=== PATIENT | female | born 1975 | race Caucasian/White ===

== ENCOUNTER 2025-01-06 23:08 | Emergency (ER) | payer BC, SELFPAY ==
[2025-01-06 23:13] VITALS: BP 140/74
[2025-01-07 01:31] VITALS: BMI 17.8
[2025-01-07 01:33] VITALS: BP 117/81
--- NOTE | 2025-01-07 03:32 | ED.GENMED ---
History of Present Illness
General
Chief Complaint: Visual Problem
Source: patient
Exam Limitations: none
Time Seen by Provider: 01/07/25 03:31
Nursing documentation reviewed up to this point in time: agreed with
History of Present Illness
History of Present Illness:
49-year-old female presents to the ER today with complaints of a floater in her right eye which began last night around 10 PM when patient was getting ready to go to sleep. Patient reports that out of her right eye, she small saw 1 black squiggly
line which turned into a [place]. She reports that occasionally will move across her vision. Is not impairing her vision. She also has a mild foreign body sensation in her right eye but denies any pain. She has not recall getting anything into
her eye or scratching her eye. She currently does not wear contacts and wears glasses. She has follow-up with the optic mortgage loan counselor but does not regularly see an boat person. She denies any history of high blood pressure or diabetes. She
denies any headache, blurry vision, neck pain, paresthesias in one-sided body or the face. She does not recall if this happened to her before. She denies flashes of light. She denies a curtain coming down over her vision. Patient denies
development of new floatrees or progression of symptoms as patient has been waiting in the emergency department.
Review of Systems
Review of Systems
All Other Systems: ROS reviewed and negative except as documented in HPI and ROS
Phy Exam
Physical Exam
Physical Exam:
General: Patient is well appearing and in no acute distress; non-toxic
Skin: Warm and dry, no rashes or lesions
Head: Normocephalic, atraumatic
Eyes: Sclera non-icteric. EOMs intact.
Visual acuity 20/25 bilaterally, small linear area of fluorescein uptake over the right cornea
Bedside ocular ultrasound does not reveal any evidence of retinal detachment or posterior vitreous detachment
Peripheral visual sky intact.
Cardiac: Regular rate
Pulm: Normal respiratory effort
Neuro: CN II-XII intact, no focal neurologic deficits. Normal finger to nose.
Psychiatric: Appropriate mood and affect.
Course
Orders/Labs/Results
Orders:
Orders
01/07/25 03:31
Visual Acuity- Treatment ONCE
01/07/25 06:00
Fluorescein Sodium [Ful-Yolie] 1 mg .ROUTE .STK-MED ONE
Purified Water Eye Wash [Dacriose Eye Wash Solution] 120 ml .ROUTE .STK-MED ONE
Tetracaine HCl [Tetracaine 0.5% Ophthalmic Solution] 1 drop .ROUTE .STK-MED ONE
Vital Signs
Initial and Last Documented VS:
Initial Vital Signs
Temp Pulse Resp BP Pulse Ox
97.6 F 76 18 140/74 100
01/06/25 23:13 01/06/25 23:13 01/06/25 23:13 01/06/25 23:13 01/06/25 23:13
Last Documented Vital Signs
Temp Pulse Resp BP Pulse Ox
97.6 F 69 14 117/81 100
01/06/25 23:13 01/07/25 01:33 01/07/25 01:33 01/07/25 01:33 01/07/25 03:39
MDM/Problems Addressed
Differential Diagnosis Includes:
PVD, retinal detachment, corneal abrasion, uveitis
MDM/Problems Addressed:
49-year-old female presents to the ER today with complaints of a floater in her right eye which began last night around 10 PM when patient was getting ready to go to sleep. Patient reports that out of her right eye, she small saw 1 black squiggly
line which turned into a small [place] shaped floater. No visual loss. She has no other associated symptoms. No development of new symptoms or worsening symptoms after observation in the ER.
On PE, patient is well appearing NAD. She has equal visual acquity bilaterally. Her sclera are unremarkable bilaterally. Peripheral visual sky intact. She does a small linear area of fluorecin uptake on the right eye and I question if possible
corneal abrasion is responsible for her foreign body sensation, however patient has no eye pain. Will cover with abx prophylaxis. My bedside ultrasound does not show any evidence of retinal flap or changes in echogenicity concerning for vitreous
changes. Reviewed case with ED attending. I stressed to patient importance of prompt optho exam as an outpatient. 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
be able to arrange close follow up with them for a full exam should she not be able to get in with her mortgage loan counselor's office. Patient stable for discharge.
*Pulse Oximetry
SaO2: 100
Oxygen Mode of Delivery: Room air
Patient hypoxic: no
*Critical Care Note
Total Time (30-74mins, 75-104mins- exclusive of procedures): Not Applicable
ED Attending Note
-
Portions of this chart may have been created with voice recognition software.� Occasional wrong word or��sound alike� substitutions may have occurred due to the inherent limitations of voice recognition software.
Discharge Plan
Departure
Patient Disposition: Home (Routine Discharge)
Date of Disposition: 01/07/25
Time of Disposition: 04:31
Patient with high blood pressure during this ER visit?: Yes
Condition: Good
Discharge Problem:
Visual floaters, Foreign body sensation, right eye
Instructions: Floaters in the Eye, Corneal abrasion - ED (DC), BLOOD PRESSURE
Prescriptions:
New
gentamicin 0.3 % drops
2 drp ophthalmic (eye) Q6H 5 Days Qty: 5 0RF
Referrals:
Katelyn Knight MD [Family Provider, Internal Medicine]
Activity Restrictions/Additional Instructions:
As discussed, there was a small area of fluorescein uptake on your cornea, so will cover with antibiotics. Gentamicin drops have been sent to your pharmacy. Please instill 2 drops 4 times daily for 5 days.
Please follow up with your mortgage loan counselor or boat person in 24-48 hours. Please state that you were seen in the emergency department as this may help expedite your follow up.
PLEASE RETURN TO THE ER SHOULD YOU DEVELOP VISUAL LOSS, CURTAIN COMMON DOWN ON YOUR VISION, FLASHES OF LIGHT, HEADACHES, NECK PAIN, CHEST PAIN, SHORTNESS OF BREATH, CENTRAL VISUAL LOSS, OR ANY OTHER SIGNS OR SYMPTOMS WORRISOME TO YOU.
Interventions
Interventions:
*Risk Screen - Suicide Last Done: 01/06/25 23:13
*General Assessment Last Done: 01/07/25 01:30
*Neglect/Abuse Screening Last Done: 01/06/25 23:13
*ED- Fall Risk Assessment Last Done: 01/07/25 01:30
*ED COVID-19 Vaccine History Last Done: 01/07/25 01:30
*ED Influenza Vaccine History Last Done: 01/07/25 01:30
*Nursing Disposition Last Done: 01/07/25 04:35
ED- Neurological Assessment Last Done: 01/07/25 01:38
ED-EENT Assessment Last Done: 01/07/25 01:38
Discharge Date and Time
Discharge Date/Time: 01/07/25 04:35
Print Language: BELARUSIAN
== END 2025-01-07 04:35 | disposition home or self-care (01) ==
LOC: EMR 23:08
PROVIDERS: EMERGENCY PHYSICIAN Student in an Organized Health Care Education/Training Program; FAMILY PHYSICIAN Internal Medicine
DX: H43.391 Other vitreous opacities, right eye (principal); H57.8A1 Foreign body sensation, right eye; R03.0 Elevated blood-pressure reading, without diagnosis of hypertension
CPT/HCPCS: 99283